=== PATIENT | female | born 2000 | race Caucasian/White ===

== ENCOUNTER 2022-01-21 23:31 | Emergency (ER) | payer SELFPAY ==
[~2022-01-21] VITALS: Ht 162.6 cm; Wt 81.6 kg
--- NOTE | 2022-01-22 00:05 | NUR ---
TO ER BED 19. BIBS C/O FLU LIKE SYMPTOMS, COUGH, L RIB PAIN AND SORE THROAT X 4 DAYS. AAOX4. AMBULATORY. CONNECTED TO MONITOR. BREATHING IS EVEN AND UNLABORED. VSS. AWAITING MD BOTELLO
--- NOTE | 2022-01-22 00:17 | NUR ---
SCREEN WEIVER OBTAINED , XRAY NOTIFIED
--- NOTE | 2022-01-22 00:18 | NUR ---
COVID ANTIGEN, INFLUENZA, AND RAPID STREP SWABS COLLECTED
[2022-01-22] MEDS ORDERED: AZIT250T13 PO (01:23)
--- NOTE | 2022-01-22 01:27 | NUR ---
Patient discharged to home in stable condition. Written and verbal after care instructions given. Patient verbalizes understanding of instruction.
[2022-01-22 01:39] VITALS: BP 135/78
== END 2022-01-22 01:39 | disposition home or self-care (01) ==
LOC: ER 23:38
DX: J40 Bronchitis, not specified as acute or chronic (principal); Z20.822 Contact with and (suspected) exposure to COVID-19; Z86.16 Personal history of COVID-19; R03.0 Elevated blood-pressure reading, without diagnosis of hypertension
CPT/HCPCS: 71045; 87070; 87426; 87804; 87880; 99284; C9803; 86403-TC